=== PATIENT | female | born 1955 | race Caucasian/White ===

== ENCOUNTER → 2020-05-16 11:25 | Outpatient (CLI) | payer OTHER, SELFPAY ==
--- NOTE | ~2020-05-16 | MM_ITS ---
EXAMINATION: MM screening [facility] BI w loli HISTORY: Screening mammogram TECHNIQUE: Craniocaudal and mediolateral oblique 3-D tomosynthesis images were obtained and synthetic 2-D images were generated. CAD analysis was submitted and interpreted. COMPARISON: 04/26/2019, 04/20/2018, 03/14/2017, 02/20/2017 BREAST PARENCHYMAL COMPOSITION: There are scattered areas of fibroglandular density. FINDINGS: Scattered benign-appearing calcifications are present. There is no evidence of suspicious m ass, calcification, or architectural distortion to suggest malignancy in either breast. There has bee n no suspicious interval change. IMPRESSION: 1. No mammographic evidence of malignancy. 2. Recommend routine screening mammography in one year. BI-RADS Category 2: Benign finding(s). Reviewed, dictated and finalized at location A.
== END ==
PROVIDERS: PCP Family Medicine; Visit Provider Obstetrics & Gynecology
DX: Z12.31 Encounter for screening mammogram for malignant neoplasm of breast (principal)
CPT/HCPCS: 77063; 77067

== ENCOUNTER 2021-11-21 00:54 | Day surgery (SDC) | payer MEDICARE, SELFPAY ==
[2021-11-16 09:47] VITALS: BMI 30.4
--- NOTE | 2021-11-16 09:48 | PC.NURSE ---
Report to the Outpatient Waiting Room, entrance under the green pavilion located off [facility], at time __1000 on date ___11/21/21____. OR Time: __1200 . - You and your visitor will be asked a series of questions to screen for COVID 19 for your protection. - A mask is required within the hospital. - Only one visitor is allowed at this time. Patient visitors will be guided where to wait when not with patient. Preoperative COVID Testing Requirements: No COVID Test needed if: (proof is required; if not received patient will have Rapid Test prior to entry) - Patient has received COVID Vaccine at least 14 days prior to procedure date or - Patient has positive COVID test result within last 90 days of surgery date. COVID Test needed if above criteria is not met If not COVID vaccinated a COVID test must be conducted within 72 hours of surgery and patient is asked to isolate self from time of testing until procedure. You will go to the [facility] for your COVID testing. The [facility] is located at the corner of [address] [facility]. You will only be called if COVID results are positive and your surgeon may reschedule your elective surgery date. Patients may have clear liquids (water, carbonated beverages, clear teas, apple juice) until 3 hours prior to surgery with a maximum of 20 ounces. - No food from midnight until time of surgery - Infants may have breast milk until 4 hours before surgery, formula 6 hours prior to surgery. - Children will be allowed to drink immediately following surgery. If applicable, please bring a bottle or sippy cup to assist with drinking. Juice, water, soda, and popsicles are readily available. For infants on formula, please bring formula the day of surgery. Pacifiers are allowed. Take the following medications with a SIP of water the morning of surgery: _AMLODIPINE,BUSPIRONE,ESCITALOPRAM Medications to discontinue per physician MULTI VITAMIN 3 DAYS PRE OP Date to take last dose__11/17/21 Please no make-up, nail tajik, hairspray, perfume, deodorant, or body powder the day of surgery. No jewelry (including any body piercings) or valuables the day of surgery, leave them at home. Please take a shower or bath the night before, or the morning of, surgery with an antibacterial soap. Wear comfortable, loose fitting clothing. Children are encouraged to wear pajamas. - Jewelry must be removed prior to entering the operating room. Rings and piercings that are not removed may be cut off. - The hospital will not accept responsibility for valuables. - Please leave all valuables, including medications, at home the day of surgery. If you are going home after surgery, a licensed commercial collections driver must drive you home. - NO public transportation without another adult. - We recommend that an adult stay with you for 24 hours following discharge. - We also recommend that you do not drive, make important decision, drink alcoholic beverages, or take any drugs that were not prescribed by your health care provider for at least 24 hours after your discharge time. For Pediatric surgeries, we recommend two adults accompany the child home (only one inside the building at this time). Follow any additional instructions given to you from your surgeon. Telephone instructions given to _PATIENT and asked if any additional questions and then verbalized understanding. Patient advised to call surgeon office or pre surgery nurse liaison [phone] if any additional questions.
[2021-11-21] MEDS: LACTATED RINGERS 1,000 ML 30 ML IV CONT (10:50)
[2021-11-21] MEDS: ACETAMINOPHEN 500 MG TABLET 1000 MG PO (10:50)
[2021-11-21 10:54] VITALS: BP 143/68; PULSE 73; RESP 16; TEMP 36.4; O2SAT 100
--- NOTE | 2021-11-21 10:56 | P.PNAN_ITS ---
Anes - Initial Pre Proc Eval Procedure: Operation Date: 11/21/21 12:00 Proposed Procedures p Hysteroscopy Dilation and Curettage - Liu Amanda MD Date/Time: 11/21/21 10:56 Surgeon: Liu Amanda MD Pre Op Diagnosis: postmenopausal bleeding Patient Data Age: 65 Gender: F Height: 1.63 m Weight: 80.3 kg Allergies Allergy/AdvReac Type Severity Reaction Status Date / Time tramadol AdvReac Mild Vomiting Verified 11/21/21 10:17 Home Medications Medication Instructions Recorded Confirmed Type amlodipine 5 mg PO DAILY 11/16/21 11/21/21 History atorvastatin 10 mg PO HS 11/16/21 11/21/21 History buspirone 7.5 mg PO BID 11/16/21 11/21/21 History escitalopram oxalate 10 mg PO DAILY 11/16/21 11/21/21 History estradiol 0.5 mg PO DAILY 11/16/21 11/21/21 History famotidine 20 mg PO DAILY 11/16/21 11/21/21 History meloxicam 15 mg PO DAILY 11/16/21 11/21/21 History cxsaascu-xbd-zhfa-FA-lutein 1 tablet PO DAILY 11/16/21 11/21/21 History [Centrum Silver Women] omeprazole 20 mg PO DAILY 11/16/21 11/21/21 History progesterone micronized 100 mg PO QAM 11/16/21 11/21/21 History [Prometrium] Patient hx anesthesia problems: none Family hx anesthesia problems: none Results Review: All pre-operative results and documents have been reviewed as part of the pre-operative evaluation. [facility] Past Medical History Medical History (Updated 11/21/21 @ 10:57 by Alex Enriquez DO) Anxiety GERD (gastroesophageal reflux disease) Hyperlipidemia Hypertension PONV (postoperative nausea and vomiting) Surgical History Surgical History (Updated 11/21/21 @ 10:57 by Alex Enriquez DO) History of total knee replacement Social History Social History Smoking status: Never smoker Alcohol intake: current Drinks per week: 4 Living arrangements: with family Spiritual care concerns: No Anes - Eval Final PreProcedure Day of Procedure 11/21/21 10:56 Patient weight: obese Heart: regular rate and rhythm Lungs: clear to auscultation and normal air movement Airway: Mallampati scale class II Neurological: alert and oriented Last oral intake: >/= 8 hours ASA classification: III Emergent: no Anesthetic plan: proceed Anesthesia type and monitoring: general GIVS and standard monitoring Results Review: All pre-operative results and documents have been reviewed as part of the pre-operative evaluation. Informed Consent: The patient's anesthetic plan and its attendant risks and benefits were discussed with the patient/family/POA. Questions were solicited and answers provided to the satisfaction of the patient/family/POA.
--- NOTE | 2021-11-21 12:14 | PM.IMHP ---
H&P: HPI History of Present Illness Date/Time: 11/21/21 12:14 65 y/o female with postmenopausal vaginal bleeding on HRT. She had an episode of this in 2013, with an benign endometrial sample in the office. Chief Complaint: Bleeding Review of Systems Review of Systems: All systems reviewed & are unremarkable except as noted in HPI and below PMFSH Past Medical History Medical History Anxiety GERD (gastroesophageal reflux disease) Hyperlipidemia Hypertension PONV (postoperative nausea and vomiting) Surgical History Surgical History History of total knee replacement Social History Social History Smoking status: Never smoker Alcohol intake: current Drinks per week: 4 Living arrangements: with family Spiritual care concerns: No Meds Home Medications and Allergies Home Medications Medication Instructions Recorded Confirmed Type amlodipine 5 mg PO DAILY 11/16/21 11/21/21 History atorvastatin 10 mg PO HS 11/16/21 11/21/21 History buspirone 7.5 mg PO BID 11/16/21 11/21/21 History escitalopram oxalate 10 mg PO DAILY 11/16/21 11/21/21 History estradiol 0.5 mg PO DAILY 11/16/21 11/21/21 History famotidine 20 mg PO DAILY 11/16/21 11/21/21 History meloxicam 15 mg PO DAILY 11/16/21 11/21/21 History fdrlgakk-mjq-vqix-FA-lutein 1 tablet PO DAILY 11/16/21 11/21/21 History [Centrum Silver Women] omeprazole 20 mg PO DAILY 11/16/21 11/21/21 History progesterone micronized 100 mg PO QAM 11/16/21 11/21/21 History [Prometrium] Allergies Allergy/AdvReac Type Severity Reaction Status Date / Time tramadol AdvReac Mild Vomiting Verified 11/21/21 10:17 Vital Signs Vital Signs - 24 hr 11/21/21 10:54 Temperature 36.4 C Pulse Rate 73 Respiratory Rate 16 Blood Pressure 143/68 H Pulse Oximetry 100 Exam Const: Orientation/consciousness: patient oriented x3 Other: Well-developed, well-nourished female in no acute distress. Neck: Thyroid: thyroid normal Lymphatic: no lymphadenopathy noted (in neck, axilla or inguinal nodes) Resp: Effort & Inspection: normal respiratory effort Auscultation: clear to auscultation bilaterally Cardio: Rate: regular rate Rhythm: regular rhythm Heart sounds: S1 normal heart sound present and S2 normal heart sound present GI: Other: ABD: Soft, nontender, nondistended. No guarding or rebound tenderness. No hepatosplenomegaly. : General: Yes no CVA tenderness Other: External genitalia: normal female hair distribution, without lesion. Urethral meatus: no lesion, non prolapsed. Bladder: no mass, nontender Vagina: atrophic, without lesion or discharge. No cystocele or rectocele. Cervix: no lesion or discharge. Uterus: small, anteverted, freely mobile, nontender Adnexa: no mass or tenderness. Anus/perineum: no lesions, nontender Back/Spine/Pelvis: Back: no CVA tenderness Skin: General skin exam: normal color and no rashes or lesions noted Neuro: General: patient oriented x3 Extrem: Other: Extremities: nontender with no edema Psych: Mental Status: mental status grossly normal Affect: normal affect Assessment and Plan Assessment and plan (1) Postmenopausal bleeding: Code(s): N95.0 - Postmenopausal bleeding Status: Acute Assessment and Plan: A: Postmenopausal vaginal bleeding. P: Offered hysteroscopy with dilation and sharp curettage both for diagnosis and treatment. She understands risks of surgery to include risks of anesthesia, risks of pain, infection, bleeding, blood products, thromboembolic phenomena and damage to adjacent structures such as bowel, bladder, ureters, blood vessels and nerves. She understands all these risks and elects to proceed with surgery.
--- NOTE | 2021-11-21 12:21 | WPDHPUPDATE1 ---
History and Physical Update Update Date/Time: 11/21/21 12:21 History and Physical has been reviewed, including an updated exam of the patient. There are NO changes in the patient's condition. Risks, benefits, and alternatives have been discussed and questions answered. Patient agrees to proceed with procedure.
[2021-11-21 13:12] VITALS: BP 127/70; PULSE 79; RESP 16; O2SAT 98
--- NOTE | 2021-11-21 13:16 | P.OP_ITS ---
Procedure Note - Detailed Date of Procedure 11/21/21 Pre-op Diagnosis Postmenopausal vaginal bleeding Post-op Diagnosis same Procedure Performed Hysteoscopy Dilation and sharp curettage Endometrial polypectomy Surgeon Lui Amanda MD Anesthesia MAC and local (1% lidocaine) Findings Endometrial mass, polyp vs. submucous fibroid. Both tubal ostia seen. Endometrial tissue otherwise atrophic. Description of Procedure The patient was taken to the operating room where she was prepared and draped in the usual sterile fashion in the dorsal lithotomy position. A sterile speculum was placed into the vagina. The anterior lip of the cervix was grasped with sin gle-tooth tenaculum. Ten mL of 1% lidocaine was administered in a paracervical block. The cervix was then gently dilated using Hegar dilators until an 8 mm dilator could be passed. Hysteroscopy was performed using sterile saline as a distention medium. Findings are as noted above. The myoma graspers were used to excise the endometrial mass piecemeal. Follow up hysteroscopy confirmed the bulk of the mass had been excised. Moreover, there was no evidence of uterine perforation. Hemostasis was excellent. Sponge, lap, needle and instrument counts were correct. The patient was awakened and taken to the recovery room in stable condition. I was present and scrubbed through the entire procedure. Implants None Estimated Blood Loss 10 Drains No Packing No Pathology yes (Endometrial curettings) Complications None Condition stable Disposition PACU
[2021-11-21 13:30] VITALS: BP 120/67; PULSE 74; RESP 16
[2021-11-21 13:53] VITALS: BP 120/67; PULSE 74; RESP 16
[2021-11-21 14:01] VITALS: BP 124/59; PULSE 77; RESP 16
== END 2021-11-21 14:13 | disposition home or self-care (01) ==
PROVIDERS: PCP Family Medicine; Visit Provider Obstetrics & Gynecology
PROC: 0U5B8ZZ Destruction of Endometrium, Via Natural or Artificial Opening Endoscopic (ICD-10-PCS; CPT 58563; principal; 2021-11-21 12:00)
DX: N95.0 Postmenopausal bleeding (principal); D25.0 Submucous leiomyoma of uterus; I10 Essential (primary) hypertension; E78.5 Hyperlipidemia, unspecified; K21.9 Gastro-esophageal reflux disease without esophagitis; F41.9 Anxiety disorder, unspecified; E66.9 Obesity, unspecified; Z68.30 Body mass index [BMI] 30.0-30.9, adult
CPT/HCPCS: 58561; 88305; A9270; J1885; J2250; J2270; J2405; J2704; J7030; J7120

== ENCOUNTER 2024-04-21 14:11 | Outpatient (CLI) | payer MEDICARE, SELFPAY ==
--- NOTE | ~2024-04-21 | MM_ITS ---
EXAMINATION: MM screening [facility] BI w loli HISTORY: Screening TECHNIQUE: Craniocaudal and mediolateral oblique 3-D tomosynthesis images were obtained and synthetic 2-D images were generated. CAD analysis was submitted and interpreted. COMPARISON: Comparison to multiple prior studies sequentially, with oldest reviewed study dated 01/10. BREAST PARENCHYMAL COMPOSITION: Not dense: There are scattered areas of fibroglandular density. FINDINGS: There is no evidence of suspicious mass, calcification, or architectural distortion to sugg est malignancy in either breast. There has been no suspicious interval change. IMPRESSION: 1. No mammographic evidence of malignancy. 2. Recommend routine screening mammography in one year. BI-RADS Category 1: Negative Reviewed, dictated and finalized at location B.
== END 2024-04-21 14:12 | disposition home or self-care (01) ==
PROVIDERS: PCP Family Medicine; Visit Provider Obstetrics & Gynecology
DX: Z12.31 Encounter for screening mammogram for malignant neoplasm of breast (principal)
CPT/HCPCS: 77063; 77067